=== PATIENT | female | born 1990 | race Caucasian/White ===

== ENCOUNTER 2023-11-23 10:35 | Outpatient (CLI) | payer BC, SELFPAY ==
--- NOTE | 2023-11-23 10:53 | XR_ITS ---
FINAL REPORT CLINICAL HISTORY: Right hip pain COMPARISON: None FINDINGS: RIGHT HIP Two views of the right hip demonstrate no acute fracture or dislocation. The joint spaces appear normal. The visualized bony structures are well aligned. No soft tissue abnormality is seen. IMPRESSION: No acute bony abnormality. Reviewed, Interpreted and Dictated by Lakhwinder Savage MD Transcribed by Patty Rizvi Authenticated and [facility]
--- NOTE | 2023-11-23 10:55 | XR_ITS ---
FINAL REPORT CLINICAL HISTORY: Right hip pain COMPARISON: None FINDINGS: RIGHT FEMUR Two views of the right femur were obtained. There is no acute fracture or dislocation. The joint spaces are well-preserved. There is no acute soft tissue abnormality. IMPRESSION: No acute abnormality identified. Reviewed, Interpreted and Dictated by Lakhwinder Savage MD Transcribed by Patty Rizvi Authenticated and [facility]
== END 2023-11-23 23:59 | disposition home or self-care (01) ==
LOC: RAD 10:46
PROVIDERS: PCP Physician Assistant; Visit Provider Physician Assistant
DX: M25.551 Pain in right hip (principal)
CPT/HCPCS: 73502; 73552